=== PATIENT | female | born 1995 | race Caucasian/White ===

== ENCOUNTER 2024-05-04 03:13 | Emergency (ER) | payer SELFPAY ==
[~2024-05-04] VITALS: Ht 170.2 cm; Wt 70.0 kg
[2024-05-04 03:25] VITALS: BP 126/72; PULSE 88; RESP 16; TEMP 97.8; O2SAT 98
[2024-05-04] MEDS: SODIUM CHLORIDE 0.9% 1,000 ML IV ONE (03:54)
[2024-05-04] MEDS: ONDANSETRON HCL 4MG/2ML INJ IV ONE (03:57)
[2024-05-04 03:59] LABS: CARBON DIOXIDE 24 mEq/L (21-32); CHLORIDE 104 mEq/L (98-107); POTASSIUM 3.4 mEq/L (3.5-5.1); SODIUM 137 mEq/L (136-145)
[2024-05-04 04:00] LABS: CALCIUM 9.6 mg/dL (8.7-10.4)
[2024-05-04 04:04] LABS: CREATININE 0.6 mg/dL (0.6-1.0)
[2024-05-04 04:05] LABS: GLUCOSE 127 mg/dL (70-105); UREA NITROGEN BLOOD 13 mg/dL (9-23)
[2024-05-04 04:06] LABS: ALBUMIN 4.6 g/dL (3.2-4.8)
[2024-05-04 04:07] LABS: ALANINE AMINOTRANSFERASE 38 IU/L (10-49); ASPARTATE AMINOTRANSFERASE 27 IU/L (<34); BILIRUBIN TOTAL 0.3 mg/dL (0.1-1.0); PROTEIN TOTAL 7.1 g/dL (6.0-8.3)
[2024-05-04 04:09] LABS: PROTHROMBIN TIME 11.2 sec (9.6-11.0)
[2024-05-04 04:24] LABS: HEMATOCRIT. 34.1 % (36.0-48.0); HEMOGLOBIN. 11.3 g/dL (12.0-16.0); MEAN CORPUSCULAR HEMOGLOBIN 31.1 pg (28.0-32.0); MEAN CORPUSCULAR HGB CONC 33.1 g/dL (31.0-37.0); MEAN PLATELET VOLUME 8.6 fl (7.4-10.4); PLATELET 369 x1000/uL (130-400); RED BLOOD CELL COUNT 3.63 mill/uL (4.2-5.4); RED CELL DISTRIBUTION WIDTH 13.3 % (11.6-14.6); WHITE BLOOD COUNT 12.4 x1000/uL (4.5-11.0)
[2024-05-04 04:33] LABS: DIFFERENTIAL COMMENT 1
[2024-05-04 04:41] LABS: BILIRUBIN DIRECT < 0.1 mg/dL (<=3.0); ETHANOL BLOOD < 10 mg/dL (<10)
[2024-05-04] MEDS ORDERED: ONDA4TAB50 MT (05:44)
[2024-05-04 08:46] LABS: PLATELET ESTIMATE NORMAL
== END 2024-05-04 05:53 | disposition home or self-care (01) ==
LOC: ER 03:24 → EDBD 03:24 → ER 05:53
DX: T40.711A Poisoning by cannabis, accidental (unintentional), initial encounter (principal); R11.2 Nausea with vomiting, unspecified; F12.10 Cannabis abuse, uncomplicated; X58.XXXA Exposure to other specified factors, initial encounter
CPT/HCPCS: 80076; 80048; 80320; 83690; 85025; 85610; 36415; 96361; 96374; 99283; J2405; J7030; G0480